=== PATIENT | female | born 1975 | race Caucasian/White ===

== ENCOUNTER 2017-03-16 18:20 | Emergency (ER) | payer BC, OTHER ==
[~2017-03-16] VITALS: Ht 152.4 cm; Wt 71.4 kg
[~2017-03-16 18:20] MED LIST: AMOXICILLIN500 MG OR; AMOXICILLIN500 MG PO; AUGMENTIN500TAB PO; CLARITIN10 M1 OR; COZAAR50 MG PO; DOXYCYC MONO100 M1 PO; GLIPIZIDE5 MG PO; GLUCOPHAGE500 MG OR; INVOKANA300 MG PO; JANUVIA50 MG PO; METFORMIN500 MG PO; REGLAN10 MG PO; TRAMADOL HCL50 MG PO; ZOFRAN4 MG/TAB PO
[2017-03-16 21:09] LABS: HEMATOCRIT 43.7 % (37.0-47.0); HEMOGLOBIN 14.8 g/dl (12.0-16.0); IMMATURE GRANULOCYTES 0.2 % (0.0-1.0); MEAN CELL VOLUME 81.2 fL CALC (80.0-100.0); MEAN CORPUSCULAR HGB 27.5 pG CALC (26.0-32.0); MEAN CORPUSCULAR HGB CONC 33.9 g/L CALC (32.0-36.0); NEUT# 5.89 thou/uL (2.00-7.15); RED BLOOD COUNT 5.38 mill/uL (4.20-5.60); RED CELL DISTRI WIDTH 12.6 % (11.5-15.5)
[2017-03-16 21:16] LABS: URINE BILIRUBIN - DIPSTICK NEGATIVE (NEGATIVE); URINE BLOOD DIPSTICK SMALL (NEGATIVE); URINE COLOR YELLOW; URINE GLUCOSE - DIPSTICK >=1000 mg/dL (NEGATIVE); URINE KETONE 40 mg/dL (NEGATIVE); URINE LEUK ESTERASE NEGATIVE (NEGATIVE); URINE PROTEIN - DIPSTICK NEGATIVE (NEG-TRACE); URINE SPECIFIC GRAVITY 1.015; URINE UROBILINOGEN - DIPSTICK 0.2 E.U./dL (0.2)
[2017-03-16 21:20] LABS: URINE CLARITY SL CLOUDY; URINE NITRITE - DIPSTICK POSITIVE (Negative)
[2017-03-16 21:30] LABS: URINE BACTERIA FEW hpf; URINE SQUAMOUS EPITHELIAL CELL FEW EPI/hpf (0-FEW)
[2017-03-16 21:30] LABS: ALBUMIN 4.4 g/dL (3.2-5.0); ALKALINE PHOSPHATASE 111 u/l (38-126); ANION GAP 21 (6-22 (CALC)); BILIRUBIN, TOTAL 0.4 mg/dL (0.0-1.4); BUN 11 mg/dL (7-17); BUN/CREATININE RATIO 18 (12-20 (CALC)); CALCIUM 10.1 mg/dL (8.4-10.2); CARBON DIOXIDE 24 mmol/l (22-30); CHLORIDE 98 mmol/l (95-108); CREATININE 0.6 mg/dL (0.5-1.0); GFR > 60 ML/MIN (>=60 (CALC)); GFR FOR AFR.AMER. > 60 ML/MIN (>=60 (CALC)); GLUCOSE 343 mg/dL (65-105); LIPASE 96 u/l (23-300); POTASSIUM 4.2 mmol/l (3.5-5.1); SGOT/AST 25 u/l (14-36); SGPT/ALT 38 u/l (9-52); SODIUM 139 mmol/l (137-146); TOTAL PROTEIN 7.3 g/dL (6.3-8.2)
[2017-03-16] MEDS ORDERED: RANITIDINE 150150 MG PO (23:31)
[2017-03-16] MEDS ORDERED: ZOFRAN4 M1 PO (23:31)
[2017-03-16] MEDS ORDERED: CEPHALEXIN500 MG PO (23:31)
[2017-03-17 00:55] VITALS: BP 171/86
== END 2017-03-17 00:55 | disposition home or self-care (01) | DRG 690 ==
LOC: ED 18:20
PROVIDERS: Family Medicine
DX: N39.0 Urinary tract infection, site not specified (principal); K52.9 Noninfective gastroenteritis and colitis, unspecified; R10.12 Left upper quadrant pain; R50.9 Fever, unspecified; R10.31 Right lower quadrant pain
CPT/HCPCS: Q9967

== ENCOUNTER 2018-04-04 04:17 | Emergency (ER) | payer BC, OTHER ==
[~2018-04-04] VITALS: Ht 157.5 cm; Wt 68.0 kg
[~2018-04-04 04:17] MED LIST changes: +CEPHALEXIN500 MG PO; +RANITIDINE 150150 MG PO; +ZOFRAN4 M1 PO
[2018-04-04 05:03] LABS: HEMATOCRIT 39.5 % (37.0-47.0); HEMOGLOBIN 13.4 g/dl (12.0-16.0); IMMATURE GRANULOCYTES 0.4 % (0.0-5.0); MEAN CELL VOLUME 82.3 fL CALC (80.0-100.0); MEAN CORPUSCULAR HGB 27.9 pG CALC (26.0-32.0); MEAN CORPUSCULAR HGB CONC 33.9 g/L CALC (32.0-36.0); NEUT# 10.74 thou/uL (2.00-7.15); RED BLOOD COUNT 4.8 mill/uL (4.20-5.60); RED CELL DISTRI WIDTH 12.5 % (11.5-15.5)
[2018-04-04 05:04] LABS: URINE BILIRUBIN - DIPSTICK NEGATIVE (NEGATIVE); URINE BLOOD DIPSTICK NEGATIVE (NEGATIVE); URINE COLOR YELLOW; URINE GLUCOSE - DIPSTICK >=1000 mg/dL (NEGATIVE); URINE KETONE 40 mg/dL (NEGATIVE); URINE LEUK ESTERASE NEGATIVE (NEGATIVE); URINE NITRITE - DIPSTICK NEGATIVE (Negative); URINE PROTEIN - DIPSTICK NEGATIVE (NEG-TRACE); URINE SPECIFIC GRAVITY <=1.005; URINE UROBILINOGEN - DIPSTICK 0.2 E.U./dL (0.2)
[2018-04-04 05:29] LABS: ALKALINE PHOSPHATASE 103 u/l (38-126); AMYLASE < 30 u/l (30-110); ANION GAP 16 (6-22 (CALC)); BILIRUBIN, TOTAL 0.5 mg/dL (0.0-1.4); BUN 9 mg/dL (7-17); BUN/CREATININE RATIO 18 (12-20 (CALC)); CARBON DIOXIDE 26 mmol/l (22-30); CHLORIDE 95 mmol/l (95-108); CREATININE 0.5 mg/dL (0.5-1.0); GFR > 60 ML/MIN (>=60 (CALC)); GFR FOR AFR.AMER. > 60 ML/MIN (>=60 (CALC)); LIPASE 114 u/l (23-300); POTASSIUM 3.7 mmol/l (3.5-5.1); SGOT/AST 16 u/l (14-36); SODIUM 134 mmol/l (137-146); TOTAL PROTEIN 6.8 g/dL (6.3-8.2)
[2018-04-04 05:40] LABS: MYOGLOBIN 17 ng/mL (0 - 62)
[2018-04-04] MEDS ORDERED: BACTRIM DS1 TAB PO (06:09)
[2018-04-04] MEDS ORDERED: ULTRAM50 M1 PO (06:09)
[2018-04-04] MEDS ORDERED: ZOFRAN ODT4 MG PO (06:09)
[2018-04-04 06:24] VITALS: BP 115/58
[2018-04-04] MEDS ORDERED: GLIPIZIDE5 MG PO (06:25)
[2018-04-04] MEDS ORDERED: GLUCOPHAGE500 MG PO (06:26)
== END 2018-04-04 06:31 | disposition home or self-care (01) | DRG 603 ==
LOC: ED 04:17
PROVIDERS: Emergency Medicine
DX: L02.31 Cutaneous abscess of buttock (principal); L03.317 Cellulitis of buttock; I10 Essential (primary) hypertension; R11.2 Nausea with vomiting, unspecified; R00.0 Tachycardia, unspecified; R50.9 Fever, unspecified; E11.9 Type 2 diabetes mellitus without complications; Z79.84 Long term (current) use of oral hypoglycemic drugs

== ENCOUNTER 2018-04-04 21:01 | Observation (INO) | payer BC, OTHER ==
[~2018-04-04] VITALS: Ht 157.5 cm; Wt 71.6 kg
[~2018-04-04 21:01] MED LIST changes: +BACTRIM DS1 TAB PO; +GLUCOPHAGE500 MG PO; +ULTRAM50 M1 PO; +ZOFRAN ODT4 MG PO
--- NOTE | 2018-04-04 21:17 | NUR ---
PT AMB TO RM 9
[2018-04-04 21:32] LABS: HEMOGLOBIN 13.2 g/dl (12.0-16.0); IMMATURE GRANULOCYTES 0.5 % (0.0-5.0); MEAN CELL VOLUME 82.8 fL CALC (80.0-100.0); MEAN CORPUSCULAR HGB CONC 33.8 g/L CALC (32.0-36.0); NEUT# 11.54 thou/uL (2.00-7.15); RED BLOOD COUNT 4.71 mill/uL (4.20-5.60); RED CELL DISTRI WIDTH 12.8 % (11.5-15.5)
[2018-04-04 21:34] LABS: URINE BILIRUBIN - DIPSTICK NEGATIVE (NEGATIVE); URINE BLOOD DIPSTICK SMALL (NEGATIVE); URINE COLOR YELLOW; URINE GLUCOSE - DIPSTICK >=1000 mg/dL (NEGATIVE); URINE KETONE TRACE mg/dL (NEGATIVE); URINE LEUK ESTERASE TRACE (NEGATIVE); URINE NITRITE - DIPSTICK NEGATIVE (Negative); URINE PH 6.5 (4.5-8.0); URINE PROTEIN - DIPSTICK NEGATIVE (NEG-TRACE); URINE SPECIFIC GRAVITY 1.015; URINE UROBILINOGEN - DIPSTICK 0.2 E.U./dL (0.2)
[2018-04-04 21:37] LABS: COCAINE NEGATIVE (NEGATIVE); TETRAHYDROCANNABIONOL NEGATIVE (NEGATIVE)
[2018-04-04 21:38] LABS: BARBITURATES NEGATIVE (NEGATIVE); METHADONE NEGATIVE (NEGATIVE); OXCYCODONE NEGATIVE (NEGATIVE); TRICYLIC ANTIDEPRESSANTS NEGATIVE (NEGATIVE)
--- NOTE | 2018-04-04 21:39 | NUR ---
WOUND EVAL BY DR. FROST. CULTURE OBTAINED FROM BUTTOCKS.
[2018-04-04 21:42] LABS: URINE SQUAMOUS EPITHELIAL CELL FEW EPI/hpf (0-FEW); URINE WBC 50-100 WBC/hpf (0-5)
[2018-04-04 21:44] LABS: ALBUMIN 4.2 g/dL (3.2-5.0); ALKALINE PHOSPHATASE 117 u/l (38-126); ANION GAP 18 (6-22 (CALC)); BILIRUBIN, TOTAL 0.4 mg/dL (0.0-1.4); BUN 9 mg/dL (7-17); BUN/CREATININE RATIO 16 (12-20 (CALC)); CARBON DIOXIDE 27 mmol/l (22-30); CHLORIDE 93 mmol/l (95-108); CREATININE 0.6 mg/dL (0.5-1.0); GFR > 60 ML/MIN (>=60 (CALC)); GFR FOR AFR.AMER. > 60 ML/MIN (>=60 (CALC)); POTASSIUM 3.7 mmol/l (3.5-5.1); SGOT/AST 18 u/l (14-36); SODIUM 134 mmol/l (137-146); TOTAL PROTEIN 7.1 g/dL (6.3-8.2)
--- NOTE | 2018-04-04 21:53 | NUR ---
LAB CRITICAL VALUE, BLOOD SUGAR 460. DR FROST INFORMED.
--- NOTE | 2018-04-04 22:00 | NUR ---
I&D R BUTTOCKS WITH PACKING WITH WOUND CULTURES. KENYA FIELDS AT BEDSIDE WITH DR FROST.
--- NOTE | 2018-04-04 22:30 | NUR ---
DR FROST INFORMED PT OF ADMISSION, PT AGREED.
--- NOTE | 2018-04-04 23:30 | NUR ---
REPORT CALLED TO [facility].
[2018-04-05] VITALS (8 sets, daily range): BP systolic 111–156; BP diastolic 64–86
--- NOTE | 2018-04-05 00:10 | NUR ---
PT ARRIVED TO UNIT VIA STRETCHER WITH ER STAFF. AMBULATED TO BED INDEPENDENTLY WITH STEADY GAIT. DENIES PAIN CURRENLTY; SOME DISCOMFORT TO RIGHT BUTTOCK AT SITE OF I&D. RESPIRATIONS EVEN AND UNLABORED ON ROOM AIR. VS OBTAINED. ORIENTED TO ROOM AND CALL LIGHT SYSTEM. AT BEDSIDE. PLAN OF CARE DISCUSSED. PT ENCOURAGED TO VERBALIZE CONCERNS. STATES UNDERSTANDING. SAFETY MEAURES IN PLACE. CALL LIGHT WITHIN REACH.
--- NOTE | 2018-04-05 00:10 | NUR ---
PT TO ICU ON TELE WITH RN.
--- NOTE | 2018-04-05 02:47 | NUR ---
PT UP TO BSC TO VOID 700ML OF PALE YELLOW URINE SLIGHLTY CLOUDY; INDEPENDENT. IV FLUIDS INFUSING WITHOUT DIFFICULTY; IV SITE APPEARS HEALTHY. REMAINS AT BEDSIDE.
--- NOTE | 2018-04-05 05:26 | NUR ---
PT ASLEEP WITH NO SIGN OF DISTRESS. RESPIRATIONS EVEN AND UNLABORED ON ROOM AIR. IV FLUIDS INFUSING WITHOUT DIFFICULTY; IV SITE APPEARS HEALTHY. PT USES CALL LIGHT PRN FOR ASSISTANCE. SAFETY MEASURES IN PLACE. CALL LIGHT WITHIN REACH.
--- NOTE | 2018-04-05 06:42 | NUR ---
PT HAS NO NEEDS OR CONCERNS AT THIS TIME; RESTING SUPINE. TEMPERATURE 99.0.
--- NOTE | 2018-04-05 07:15 | NUR ---
pt awake in bed; no apparent distress noted; assessment completed at this time; pt alert and oriented; admits to headache and pain at right buttock/ abscess site rating 4/10; no n/v noted; will notify md for pain medications; resp even and unlabored; lungs clear bilat; skin color wnl; ra; hr reg; strong pulses; no edema noted; st on monitor; bilat knee high chanelle hose intact; abd soft with bs present; no bm noted per tag writer; pt voiding cloudy yellow urine; bsc; #20 to lac flushed and patent with ivf infusing without complication; no redness or edema noted at site; open area/wound noted to lower abd/suprapubic area; red center/ no drainage; strip packing noted intact to right inner lower buttock wound; no drainage noted; plan of care explained; call light within reach; will continue to monitor
--- NOTE | 2018-04-05 08:26 | NUR ---
awake in bed; no apparent distress noted; pt offers no complaints at this time; tolerated breakfast well; iv patent with fluids infusing without complication; no redness or edema noted at site; call light within reach; will continue to monitor
--- NOTE | 2018-04-05 09:50 | NUR ---
Dr Cortez present at bedside to assess pt and discuss plan of care
--- NOTE | 2018-04-05 10:02 | NUR ---
Dr Bloom called per Dr Cortez; Dr Bloom will see pt today
--- NOTE | 2018-04-05 10:10 | NUR ---
awake in bed; labs obtained at this time per flex o writer operator; nasal swab as per MD request for MRSA screen; contact precautions initiated; iv patent; fluids infusing without complication; no redness or edema noted at site; call light within reach; will continue to monitor
[2018-04-05 10:28] LABS: HEMATOCRIT 35.4 % (37.0-47.0); IMMATURE GRANULOCYTES 0.4 % (0.0-5.0); MEAN CELL VOLUME 83.5 fL CALC (80.0-100.0); MEAN CORPUSCULAR HGB 28.3 pG CALC (26.0-32.0); MEAN CORPUSCULAR HGB CONC 33.9 g/L CALC (32.0-36.0); NEUT# 11.04 thou/uL (2.00-7.15); RED BLOOD COUNT 4.24 mill/uL (4.20-5.60); RED CELL DISTRI WIDTH 12.9 % (11.5-15.5)
[2018-04-05 10:46] LABS: INTERNATIONAL NORMALIZED RATIO 0.9 RATIO (0.7-1.3); PROTHROMBIN TIME 9.6 SECONDS (9.0-12.5)
[2018-04-05 10:48] LABS: ALKALINE PHOSPHATASE 99 u/l (38-126); BILIRUBIN, TOTAL 0.5 mg/dL (0.0-1.4); BUN 5 mg/dL (7-17); BUN/CREATININE RATIO 12 (12-20 (CALC)); CARBON DIOXIDE 26 mmol/l (22-30); CHLORIDE 100 mmol/l (95-108); CREATININE 0.4 mg/dL (0.5-1.0); GFR > 60 ML/MIN (>=60 (CALC)); GFR FOR AFR.AMER. > 60 ML/MIN (>=60 (CALC)); POTASSIUM 4.1 mmol/l (3.5-5.1); SGOT/AST 15 u/l (14-36); TOTAL PROTEIN 5.8 g/dL (6.3-8.2)
[2018-04-05 11:07] LABS: ANION GAP 12 (6-22 (CALC)); SODIUM 134 mmol/l (137-146)
[2018-04-05 11:08] LABS: ALBUMIN 3.2 g/dL (3.2-5.0)
--- NOTE | 2018-04-05 11:30 | NUR ---
Dr Bloom present at bedside to assess pt and discuss plan of care; warm compress to be applied to right buttock; will continue to monitor
--- NOTE | 2018-04-05 12:03 | NUR ---
awake in bed; no apparent distress noted; pt offers no complaints; admits to pain relief; deny need for stronger pain medication; iv patent; fluids infusing without complication; no redness or edema noted at site; call light within reach; will continue to monitor
--- NOTE | 2018-04-05 12:25 | NUR ---
WARM COMPRESS PLACED INBETWEEN BUTTOCKS.
--- NOTE | 2018-04-05 13:04 | NUR ---
Dr Dobson's office called per tech writer; [place] informed of cancellation in consultation;
--- NOTE | 2018-04-05 14:05 | NUR ---
awake in bed; offers no complaints; crackers provided as per request; iv patent; fluids infusing without complication; no redness or edema noted at site; call light within reach; will continue to monitor
--- NOTE | 2018-04-05 14:10 | NUR ---
awake in bed; multiple visitors present at bedside; pt offers no complaints; st on monitor; iv patent; fluids infusing without complication; no redness or edema noted at site; call light within reach; will continue to monitor
--- NOTE | 2018-04-05 16:00 | NUR ---
resting in bed; offers no complaints; denies needs; iv patent; no redness or edema noted at site; call light within reach; will continue to monitor
--- NOTE | 2018-04-05 18:04 | NUR ---
awake in bed; spouse present at bedside; no apparent distress noted; pt offers no complaints; warm compress applied to inner buttock; iv patent; call light within reach
--- NOTE | 2018-04-05 18:50 | NUR ---
BEDSIDE REPORT RECEIVED FROM DONNIE ZAMAN. PT SITTING UP IN BED; ALERT AND ORIENTED. C/O MILD PAIN TO RIGHT BUTT AT SIDE OF I&D; BLOODY DRAINGE NOTED TO PADDING ON BED FROM SITE; REPLACED. RESPIRATIONS EVEN AND UNLABORED ON ROOM AIR. FAMILY AT BEDSIDE. IV SITE TO LAC APPEARS INFILTRATED; SITE D/C'D AND NEW SITE PLACED TO LFA; IV FLUIDS NOW INFUSING WITHOUT DIFFICULTY AND SITE APPEARS HEALTHY. PLAN OF CARE REVIEWED. PT ENCOURAGED TO VERABLIZE CONCERNS. STATES UNDERSTANDING. SAFETY MEASURES IN PLACE. CALL LIGHT WITHIN REACH.
--- NOTE | 2018-04-06 00:09 | NUR ---
FLUIDS REMOVED FROM BEDSIDE; PT NOW NPO. ASLEEP AT THIS TIME WITH NO SIGNS OF DISTRESS. INDEPENDENT IN ROOM.
--- NOTE | 2018-04-06 03:58 | NUR ---
NO ACUTE CHANGES IN CONDITION THROUGHOUT THE NIGHT. WARM COMPRESS CONTINUES TO BE APPLIED TO RIGHT GLUTE AT SITE OF I&D. SAFETY MEASURES IN PLACE. CALL LIGHT WITHIN REACH.
[2018-04-06 04:17] VITALS: BP 112/73
--- NOTE | 2018-04-06 07:00 | NUR ---
REPORT RECEIVED FROM DONNIE LACKEY;PT APPEARS TO BE SLEEPING IN LEFT SIDE LAYING POSITION;RESPIRATIONS EVEN AND UNLABORED ON RA;NO S/S OF DISTRESS NOTED;NPO DIET REINFORCED;CONTACT PRECAUTIONS IN PLACE;ALL SAFETY PRECAUTIONS REINFORCED WITH BED IN THE LOWEST POSITION AND CALL LIGHT IN REACH;WILL CONTINUE TO MONITOR
[2018-04-06 08:25] VITALS: BP 124/82
--- NOTE | 2018-04-06 08:25 | NUR ---
PT RESTING IN SUPINE POSITION;ALERT AND ORIENTED X3;VS OBTAINED AND ASSESSMENT COMPLETED;RESPIRATIONS EVEN AND UNLABORED ON RA,CLEAR LUNG SOUNDS NOTED;ABDOMEN SOFT ON PALPATION AND IN ALL 4 QUADRANTS,WEAK PEDAL PULSES;ABSCESS TO RT GLUT NOTED,ENCOURAGED WARM PACKS PER ORDER;#20G TO LEFT FOREARM INFUSING NS @ 125ML/HR,SITE APPEARS HEALTHY;ACCUCHECK 215, PT COVERED WITH SLIDING SCALE NOVOLOG PER ORDER;NPO DIET REINFORCED;CONTACT PRECAUTIONS IN PLACE;PT DENIES ANY ADDITIONAL NEEDS AT THIS TIME;ENCOURAGED TO EXPRESS NEEDS AND CONCERNS;CALL LIGHT IN REACH;WILL CONTINUE TO MONITOR
--- NOTE | 2018-04-06 11:05 | NUR ---
PT RESTING IN SEMI FOWLERS POSITION;RESPIRATIONS EVEN AND UNLABORED ON RA;PT DENIES ANY CURRENT PAIN OR NEEDS;IV FLUIDS CONTINUE TO INFUSE WITH EASE TO LFA;ACCUCHECK 177,NOVOLOG INSULIN PROVIDED PER ORDER;NPO DIET REINFORCED AND PT VERBALIZES UNDERSTANDING;PT DENIES ANY ADDITIONAL NEEDS AT THIS TIME AND IS ENCOURAGED TO CALL FOR ASSISTANCE IF NEEDED;CALL LIGHT IN REACH;WILL CONTINUE TO MONITOR
--- NOTE | 2018-04-06 11:50 | NUR ---
CONTACT PRECAUTIONS REMOVED PER ;CULTURE GROWING MIN ORGANISMS.
--- NOTE | 2018-04-06 12:26 | NUR ---
CONTACT PRECAUTIONS PUT PBACK INTO PLACE;PER LAB THE [facility] POLICY REQUIRES CONTACT PRECAUTIONS FOR ANY AMOUNT OF POSITIVE ESBL CULTURE.
--- NOTE | 2018-04-06 13:20 | NUR ---
PT RESTING IN BED WITH FAMILY AT BEDSIDE;RESPIRATIONS EVEN AND UNLABORED ON RA;PT DENIES ANY CURRENT PAIN OR NEEDS;ASSESSMENT REMAINS UNCHANGED AT THIS TIME;LINENS CHANGED;PT DENIES ANY CURRENT NEEDS AND IS ENCOURAGED TO CALL FOR ASSISTANCE IF NEEDED;CALL LIGHT IN REACH;WILL CONTINUE TO MONITOR
--- NOTE | 2018-04-06 15:00 | NUR ---
PT RESTING IN SEMI FOWLERS POSITION WATCHING TV;RESPIRATIONS EVEN AND UNLABORED ON RA;PT DENIES ANY CURRENT PAIN, REPORTS HUNGER;PT RE-EDUCATED ON THE NEED TO STAY NPO AND VERBALIZES UNDERSTANDING;WILL CONTINUE TO MONITOR
[2018-04-06 16:13] VITALS: BP 151/94
--- NOTE | 2018-04-06 17:24 | NUR ---
DR MENESES @BEDSIDE ASSESSING PT.
--- NOTE | 2018-04-06 17:30 | NUR ---
UNABLE TO CHECK BLOOD SUGAR FOR DINNER;AFTER SEVERAL ATTEMPTS AND USING DIFFERENT ACCUCHECK MACHINES NONE OF THE ACCUCHECK MACHINES ARE WORKING ACCURATELY.
--- NOTE | 2018-04-06 17:45 | NUR ---
AT BEDSIDE PERFORMING I&D TO RIGHT GLULTEAL CLEFT;CONSENT FOR INCISION AND DRAINAGE WAS OBTAINED PRIOR;PT UNDERSTANDS PROCEDURE AND VERBALIZES UNDERSTANDING;PT WAS MEDICATED WITH 1MG OF DILAUDID IVP PRIOR TO INCISION;USING STERILE TECHNIQUE CLEANSED THE AREA WITH BETADINE SOLUTION AND SITE WAS INJECTED WITH 1% LIDOCAINE; USED #11 SCALPEL FOR INCISION AND DRAINAGE;SITE WAS PACKED WITH 4X4 GUAZE AND SECURED WITH ABD PAD AND PAPER TAPE;PT TOLERATED WELL BUT BECAME NAUSEOUS;EMESIS BAGS PROVIDED AND PT TO BE MEDICATED WITH ZOFRAN PER ORDER;WILL CONTINUE TO MONITOR
--- NOTE | 2018-04-06 19:00 | NUR ---
BEDSIDE REPORT RECEIVED FROM DANITZA WEINBERG. PT RESTING IN BED SEMI FOWLERS WITH EYES CLOSED AND DRY HEAVING WITH NAUSEA. ZOFRAN SO FAR INEFFECTIVE. AT BEDSIDE. SKIN HOT AND DIAPHORETIC AND PT C/O CHEST PRESSURE. DR. RO NOTIFIED OF PT CONDITION. SAFETY MEASURES IN PLACE. CALL LIGHT WITHIN REACH.
[2018-04-06 19:45] VITALS: BP 177/99
--- NOTE | 2018-04-06 20:00 | NUR ---
PHERGHAN ADMINISTERED IV WITH GOOD EFFECT; PT NOW ASLEEP WITH EYES CLOSED. WILL CONTINUE TO MONITOR.
[2018-04-06 20:15] VITALS: BP 166/92
--- NOTE | 2018-04-06 21:20 | NUR ---
FEELING BETTER AND LESS NAUSEOUS AFTER PHENERGHAN. SITTING UP IN BED WITH MEAL TRAY; PT STATES SHE IS HUNGRY. REMAINS AT BEDSIDE.
--- NOTE | 2018-04-06 21:54 | NUR ---
ATE 25% OF DINNER; TOLERATED WELL. DENIES NAUSEA AT THIS TIME. UP TO [facility] [place].
--- NOTE | 2018-04-07 00:10 | NUR ---
PT ASLEEP AT THIS TIME ON RIGHT SIDE WITH NO SIGNS OF DISTRESS. RESPIRATIONS EVEN AND UNLABORED ON ROOM AIR. IV FLUIDS INFUSING WITHOUT DIFFICULTY; IV SITE APPEARS HEALTHY. SAFETY MEASURES IN PLACE. CALL LIGHT WITHIN REACH.
--- NOTE | 2018-04-07 04:17 | NUR ---
ILYA ACUTE CHANGES IN CONDITION THROUGHOUT THE NIGHT. PT USES CALL PRN FOR ASSISTANCE; INDEPENDENT IN ROOM. SAFETY MEASURES IN PLACE. CALL LIGHT WITHIN REACH.
[2018-04-07 04:26] VITALS: BP 133/70
[2018-04-07 05:47] LABS: HEMATOCRIT 32.5 % (37.0-47.0); HEMOGLOBIN 10.8 g/dl (12.0-16.0); IMMATURE GRANULOCYTES 0.3 % (0.0-5.0); MEAN CELL VOLUME 85.3 fL CALC (80.0-100.0); MEAN CORPUSCULAR HGB 28.3 pG CALC (26.0-32.0); MEAN CORPUSCULAR HGB CONC 33.2 g/L CALC (32.0-36.0); NEUT# 6.89 thou/uL (2.00-7.15); RED BLOOD COUNT 3.81 mill/uL (4.20-5.60)
[2018-04-07 06:11] LABS: ALBUMIN 2.8 g/dL (3.2-5.0); ALKALINE PHOSPHATASE 74 u/l (38-126); ANION GAP 11 (6-22 (CALC)); BILIRUBIN, TOTAL 0.2 mg/dL (0.0-1.4); BUN 6 mg/dL (7-17); BUN/CREATININE RATIO 16 (12-20 (CALC)); CARBON DIOXIDE 23 mmol/l (22-30); CHLORIDE 106 mmol/l (95-108); CREATININE 0.4 mg/dL (0.5-1.0); GFR > 60 ML/MIN (>=60 (CALC)); GFR FOR AFR.AMER. > 60 ML/MIN (>=60 (CALC)); MAGNESIUM 1.6 mg/dL (1.6-2.3); POTASSIUM 3.7 mmol/l (3.5-5.1); SGOT/AST 15 u/l (14-36); SODIUM 137 mmol/l (137-146); TOTAL PROTEIN 5.2 g/dL (6.3-8.2)
--- NOTE | 2018-04-07 06:55 | NUR ---
REPORT RECVD FROM DONNIE LACKEY AT START OF SHIFT.
--- NOTE | 2018-04-07 08:00 | NUR ---
ROOM DECLUTTERED. CALLBELL IN REACH. PT ON CONTACT PRECAUTIONS FOR ESBL & ECHOLI IN URINE AND STAPH IN ABCESS WOUND ON BUTTUCKS.
--- NOTE | 2018-04-07 08:11 | NUR ---
PT SITTING UP IN BED, EATING BREAKFAST. STATES SHE SLEPT WELL LAST NIGHT D/T PHENERGAN. DENIES N/V THIS AM.
[2018-04-07 09:14] VITALS: BP 100/58
--- NOTE | 2018-04-07 09:22 | NUR ---
BP MED HELD FOR BP OF 100/58. PT EDUCATED ON MEDICATIONS GIVEN. NO QUESTIONS. SCANT DRIED BLOOD AROUND I&D SITE. DRESSING IN PLACE. NO DISCHARGE. AREA TENDER. PT REFUSED PAIN MEDS, STATES SHE WANTS TO SLEEP TO GET RID OF PHENERGAN & DILAUDID IN SYSTEM. CALLBELL W/IN REACH
[2018-04-07] MEDS ORDERED: LOSARTAN POTASS25 MG PO (09:51)
[2018-04-07] MEDS ORDERED: GLIPIZIDE5 M2 PO (09:52)
[2018-04-07] MEDS ORDERED: KEFLEX500 MG PO (09:54)
--- NOTE | 2018-04-07 10:40 | NUR ---
IV DC, TIP INTACT, PRESSURE DRESSING APPLIED. OLD DRESSING REMOVED FROM LEFT INNER BUTTOCKS. NEW WET/DRY DRESSING APPLIED TO AREA. PT EDUCATED ON HOW TO CARE FOR WOUND. NO QUESTIONS ASKED. PT GATHERING HER ITEMS AND GETTING DRESSED UNASSISTED.
--- NOTE | 2018-04-07 10:55 | NUR ---
D/C instructions discussed, pt verbalizes understanding all questions answered, awaiting transport for final d/c
--- NOTE | 2018-04-07 11:02 | NUR ---
PT AMBULATED OUT OF ICU 2 WITH DAUGHTER. REFUSED WC. PT SMILING & THANKING STAFF FOR CARE.
== END 2018-04-07 11:02 | disposition home or self-care (01) | DRG 988 ==
LOC: ED 21:01 → ED-I 22:15 → ED 22:33 → ICU 22:34
PROVIDERS: Emergency Medicine; Internal Medicine Nephrology; ADMIT Internal Medicine; ATTEND Internal Medicine
PROC: 0H98XZZ Drainage of Buttock Skin, External Approach (ICD-10-PCS; principal; 2018-04-04)
PROC: 0J9B0ZZ Drainage of Perineum Subcutaneous Tissue and Fascia, Open Approach (ICD-10-PCS; 2018-04-06)
DX: K61.39 Other ischiorectal abscess (principal); L03.317 Cellulitis of buttock; E11.65 Type 2 diabetes mellitus with hyperglycemia; I10 Essential (primary) hypertension; E66.9 Obesity, unspecified; B95.61 Methicillin susceptible Staphylococcus aureus infection as the cause of diseases classified elsewhere; Z68.28 Body mass index [BMI] 28.0-28.9, adult; Z79.84 Long term (current) use of oral hypoglycemic drugs; R11.2 Nausea with vomiting, unspecified; R00.0 Tachycardia, unspecified; R50.9 Fever, unspecified; E11.9 Type 2 diabetes mellitus without complications
CPT/HCPCS: J1650